=== PATIENT | male | born 1940 | race Caucasian/White ===

== ENCOUNTER → 2016-09-05 | Outpatient (CLI) | payer OTHER ==
[~2016-09-05] MED LIST: ASCA500 PO; CHERRY PACK PO; CHOL1000 PO; FIBER PO; IBUP-1050 PO; MGN PO; SENN-65 PO; SUPER BETA PROSTATE PO; VITA100C4 PO
[2016-09-05 13:52] LABS: ESTIMATED AVERAGE GLUCOSE 120 mg/dl; HA1C FLAG Normal (Normal)
[2016-09-05 13:57] LABS: BLOOD UREA NITROGEN 19 mg/dl (7-18); BUN/CREATININE RATIO 21.1 (10-20); CALCIUM 9.3 mg/dl (8.5-10.1); CARBON DIOXIDE 26 mmol/L (21-32); CHLORIDE 105 mmol/L (98-107); CREATININE 0.89 mg/dl (0.60-1.40); GLUCOSE 105 mg/dl (70-99); SODIUM 141 mmol/L (136-145)
[2016-09-05 14:02] LABS: % FREE PSA 11.1 %; FREE PSA 1.34 ng/ml
== END | disposition home or self-care (01) ==
LOC: C.LABBC 11:25
PROVIDERS: ATTEND Urology
DX: R97.20 Elevated prostate specific antigen [PSA] (principal); R73.01 Impaired fasting glucose

== ENCOUNTER 2016-09-14 11:31 | Emergency (ER) | payer OTHER ==
[~2016-09-14] VITALS: Ht 175.3 cm; Wt 76.6 kg
[~2016-09-14 11:31] MED LIST changes: -CHOL1000 PO; -SENN-65 PO
[2016-09-14 11:39] VITALS: TEMP 36.4; Ht 175.3 cm; Wt 76.6 kg
--- NOTE | 2016-09-14 11:52 | EMERGENCY ROOM VISIT NOTE ---
History Report prepared by Joellen: Sven Cruz Under the Supervision of: Dr. Giovani Pathak M.D. First contact with patient: 11:43 Chief Complaint: CONSTIPATION Stated Complaint: IMPACTED STOOL-CAN'T PASS History of Present Illness The patient is a 76 year old male who presents to the Emergency Room with complaints of persistent constipation beginning earlier today. He notes his last bowel movement was yesterday with no complications. He reports he feels the stool is "too big to pass", but does note he has the urge to have a bowel movement. The patient states he is too stressed to urinate but feels that he could urinate. He has never had an enema before, and does not take medications to help with bowel movements. He denies having any nausea or vomiting. Source of History: patient Onset: earlier today Position: other (bowel/rectum) Quality: other (persistent) Timing: other (persistent) Associated Symptoms: No nausea, No vomiting Review of Systems See HPI for pertinent positives & negatives. A total of 10 systems reviewed and were otherwise negative. Past Medical & Surgical Medical Problems: (1) No Known Active Medical Problems Family History No pertinent family history stated. Social History Smoking Status: Never Smoker Current/Historical Medications Scheduled Ascorbic Acid (Vitamin C *), 2,000 MG PO DAILY Cholecalciferol (Vitamin D3), 1 TAB PO DAILY Fiber Laxative (Fiber Laxative), 1 PO DAILY Ibuprofen (Advil), 800 MG PO BID Magnesium (Magnesium), 250 MG PO DAILY Sennosides-Docusate Sodium (Senokot S), 1 TAB PO BID Tocopheryl Acet,Dl-Alpha (Vitamin E), 200 INTER.UNIT PO DAILY [Super Beta Prostate], 2 TABLETS PO DAILY Allergies Coded Allergies: Tetanus Toxoid (Verified Allergy, Unknown, HIVES, 09/14/16) REACTION CHILD Physical Exam Vital Signs Date Time Temp Pulse Resp B/P Pulse Ox O2 Delivery O2 Flow Rate FiO2 09/14/16 13:12 56 16 153/88 97 09/14/16 11:39 36.4 54 18 145/79 97 Room Air Physical Exam GENERAL: Patient is in no acute distress. HEENT: No acute trauma, normocephalic atraumatic, mucous membranes moist, no nasal congestion, no scleral icterus. NECK: No stridor, no adenopathy, no meningismus, trachea is midline. LUNGS: Clear to auscultation bilaterally, no wheeze, no rhonchi, breath sounds equal. HEART: Without murmurs gallops or rubs, regular rate and rhythm. ABDOMEN: Soft, nontender, bowel sounds positive, no hernias, no peritonitis. EXTREMITIES: No cyanosis or edema, full range of motion of all the joints without pain or difficulty, no signs for acute trauma. NEUROLOGIC: Oriented x 3, no acute motor or sensory deficits, no focal weakness. SKIN: No rash, no jaundice, no diaphoresis. RECTAL: Significant stool in the rectal vault; no rectal mass. Medical Decision & Procedures Medications Administered Medications (Trade) Dose Ordered Sig/Denise Route Start Time Stop Time Status Last Admin Dose Admin Senna/Docusate Sodium (Senokot S Tab) 2 tab NOW ONCE PO 09/14/16 12:00 09/14/16 12:01 DC 09/14/16 11:55 2 TAB ED Course 1145: The patient was evaluated in room B6. A complete history and physical exam was performed. 1200: Ordered Senokot S Tab 2 tabs PO. 1302: I updated the patient and he is doing well. 1310: Reevaluated the patient. Discussed results and discharge instructions: He verbalized understanding and agreement. The patient is ready for discharge. Medical Decision Differentials include bowel obstruction, rectal mass, constipation, and urinary retention. The patient presents complaining of constipation. He had no pain across the abdomen on exam, he was not febrile or toxic. On my exam, he had a large amount of stool in the rectal vault. The patient was given Senokot orally. He was given a soapsuds enema. He had a large bowel movement and felt improved, he was asking for discharge home. The patient will be discharged on Senokot, he can return if worsening. Impression Primary Impression: Constipation Scribe Attestation The scribe's documentation has been prepared under my direction and personally reviewed by me in its entirety. I confirm that the note above accurately reflects all work, treatment, procedures, and medical decision making performed by me. Departure Information Dispostion Home / Self-Care Prescriptions Sennosides-Docusate Sodium (SENOKOT S) 1 Tab Tab 1 TAB PO BID, #60 TAB 3 Refills Prov: Giovani Pathak M.D. 09/14/16 Referrals RV. Drake MD (PCP) Patient Instructions [facility] Additional Instructions senokot 1 tab 2x per day to keep bowels more regular return for worsening trouble
[2016-09-14] MEDS ORDERED: DOCUSATE SODIUM/SENNA 50/8.6MG TAB PO ONE (12:00)
[2016-09-14] MEDS ORDERED: CHOL1000 PO (12:00)
[2016-09-14] MEDS ORDERED: SENN-65 PO (13:07)
[2016-09-14 13:12] VITALS: BP 153/88; PULSE 56; O2SAT 97
== END 2016-09-14 13:13 | disposition home or self-care (01) ==
LOC: C.EDB 11:33
DX: K59.00 Constipation, unspecified (principal); Z79.899 Other long term (current) drug therapy

== ENCOUNTER → 2016-10-23 | Outpatient (CLI) | payer OTHER ==
[~2016-10-23] MED LIST changes: -CHERRY PACK PO; +CHOL1000 PO; +SENN-65 PO
[2016-10-23 14:05] LABS: BLOOD UREA NITROGEN 24 mg/dl (7-18); BUN/CREATININE RATIO 26.8 (10-20); CREATININE 0.88 mg/dl (0.60-1.40)
== END | disposition home or self-care (01) ==
LOC: C.LABBC 10:47
PROVIDERS: ATTEND Urology
DX: R97.20 Elevated prostate specific antigen [PSA] (principal)

== ENCOUNTER → 2017-02-20 | Outpatient (CLI) | payer OTHER ==
[2017-02-20 13:06] LABS: BASO % 0.6 %; BASO ABS # 0.03 K/uL (0-0.2); COMPLETE YES; EOS % 1.8 %; HEMATOCRIT 46.1 % (42-52); IG% 0.2 %; LYMPH % 22.3 %; LYMPH ABS # 1.21 K/uL (1.2-3.4); MEAN CORPUSCULAR HEMOGLOBIN 32.7 pg (25-34); MEAN CORPUSCULAR HGB CONC 34.1 g/dl (32-36); MEAN PLATELET VOLUME 10.6 fL (7.4-10.4); NEUT % 66.1 %; PLATELET COUNT 153 K/uL (130-400); WHITE BLOOD COUNT 5.43 K/uL (4.8-10.8)
[2017-02-20 13:35] LABS: ALT/SGPT 36 U/L (12-78); BLOOD UREA NITROGEN 18 mg/dl (7-18); BUN/CREATININE RATIO 22.4 (10-20); CALCIUM 9.7 mg/dl (8.5-10.1); CARBON DIOXIDE 29 mmol/L (21-32); CHLORIDE 105 mmol/L (98-107); CREATININE 0.82 mg/dl (0.60-1.40); GLUCOSE 70 mg/dl (70-99); POTASSIUM 4.1 mmol/L (3.5-5.1); SODIUM 142 mmol/L (136-145)
[2017-02-20 13:45] LABS: ALB/GLOB RATIO 1.3 (0.9-2); ALKALINE PHOSPHATASE 67 U/L (45-117); AST/SGOT 35 U/L (15-37)
== END | disposition home or self-care (01) ==
LOC: C.LAB1850 11:58
PROVIDERS: ATTEND Internal Medicine
DX: R53.83 Other fatigue (principal)

== ENCOUNTER → 2017-06-23 | Outpatient (CLI) | payer OTHER ==
[~2017-06-23] MED LIST changes: +ASTA1CAP PO; +ASTA1CAP4 PO; +GLUC1CAP35; +KRIL1CAP21; +MAGN250T3 PO; +MULT-1027 PO; +OMEG10007 PO; +VITA100C2 PO; +[UNRECOGNIZED DRUG - CODE] PO
== END | disposition home or self-care (01) ==
LOC: C.LAB 09:54
PROVIDERS: ATTEND Urology
DX: R97.20 Elevated prostate specific antigen [PSA] (principal)

== ENCOUNTER 2017-07-16 10:23 | Inpatient (IN) | payer OTHER ==
[2017-06-23 08:53] VITALS: BMI 24.0
--- NOTE | 2017-06-23 09:32 | PAT Medication Instructions ---
Service Date Jun 23, 2017. Current Home Medication List Ascorbic Acid (Vitamin C), 1,000 MG PO Q1H Astaxanthin (Astaxanthin), 3 MG PO Q2D Astaxanthin (Astaxanthin), 1 CAP PO Q2D Cholecalciferol (Cvs D3), 1 CAP PO QAM Fiber Laxative (Fiber Laxative), Unknown Dose PO QAM Fish Oil ([place]-3), 1 CAP PO Q2D Vbgfszrotoj-Fmxamvcbsgg-Mvy C- (Glucosamine Chondroitin), Unknown Dose QAM Krill Oil (Cvs [place]-3 Krill Oil 300 mg), Q2D Magnesium (Magnesium 250 mg), 1 TAB PO QAM Multiple Vitamin (Multi Vitamin), 1 TAB PO QAM Vitamin E (Vitamin E 100 Iu), 200 INTER.UNIT PO Q2D [Super Beta Prostate], Unknown Dose PO BID Medication Instructions For Your Scheduled Surgery - Hold the following medications 2 weeks prior to surgery: Astaxanthin (Astaxanthin), 3 MG PO Q2D Astaxanthin (Astaxanthin), 1 CAP PO Q2D Vitamin E (Vitamin E 100 Iu), 200 INTER.UNIT PO Q2D Fish Oil ([place]-3), 1 CAP PO Q2D Pclloxvyqud-Ftklazgqpau-Tde C- (Glucosamine Chondroitin), Unknown Dose QAM Krill Oil (Cvs [place]-3 Krill Oil 300 mg), Q2D [Super Beta Prostate], Unknown Dose PO BID - Hold the following medications the morning of surgery: Cholecalciferol (Cvs D3), 1 CAP PO QAM Fiber Laxative (Fiber Laxative), Unknown Dose PO QAM Ascorbic Acid (Vitamin C), 1,000 MG PO Q1H Magnesium (Magnesium 250 mg), 1 TAB PO QAM Multiple Vitamin (Multi Vitamin), 1 TAB PO QAM If you have any questions please call us at [phone] or [phone] or [phone]
--- NOTE | 2017-06-23 10:30 | DIAGNOSTIC IMAGING REPORT ---
CHEST PREADMISSION(PA/LAT) CLINICAL HISTORY: Preoperative chest COMPARISON STUDY: No previous studies for comparison. FINDINGS: The cardiac and mediastinal contours are normal. There is no evidence of focal pulmonary consolidation. There is no evidence of failure. No pleural effusions are visualized.[ There are minor bibasilar atelectatic changes. IMPRESSION: No active disease in the chest. Electronically signed by: Dawood Bejarano M.D. 06/23/2017 10:28 AM Dictated Date/Time: 06/23/2017 10:28 AM
[2017-06-23 10:53] LABS: BASO % 0.3 %; BASO ABS # 0.02 K/uL (0-0.2); COMPLETE YES; EOS % 2.3 %; HEMATOCRIT 44.2 % (42-52); IG% 0.3 %; LYMPH ABS # 1.73 K/uL (1.2-3.4); MEAN CELL VOLUME 95.5 fL (80-100); MEAN CORPUSCULAR HEMOGLOBIN 33.3 pg (25-34); MEAN CORPUSCULAR HGB CONC 34.8 g/dl (32-36); MEAN PLATELET VOLUME 10.5 fL (7.4-10.4); MONO % 10.1 %; PLATELET COUNT 147 K/uL (130-400); RED BLOOD COUNT 4.63 M/uL (4.7-6.1); WHITE BLOOD COUNT 6.93 K/uL (4.8-10.8)
[2017-06-23 10:59] LABS: PARTIAL THROMBOPLASTIN RATIO 1.1; PROTHROMBIN TIME (PATIENT) 10.7 SECONDS (9.0-12.0)
[2017-06-23 11:00] LABS: ESTIMATED AVERAGE GLUCOSE 117 mg/dl; HA1C FLAG Normal (Normal)
[2017-06-23 11:12] LABS: URINE APPEARANCE CLEAR (CLEAR); URINE BILIRUBIN NEG (NEG); URINE COLOR YELLOW; URINE EPITHELIAL CELL AUTO 0-5 /lpf (0-5); URINE NITRITE NEG (NEG); URINE PH 5.5 (4.5-7.5); URINE SPECIFIC GRAVITY 1.023 (1.000-1.030); UROBILINOGEN NEG (NEG)
[2017-06-23 11:14] LABS: MANUAL MICROSCOPIC REQUIRED? NO; REVIEW REQ? NO
[2017-06-23 11:23] LABS: BUN/CREATININE RATIO 23.4 (10-20); CALCIUM 9.7 mg/dl (8.5-10.1); CREATININE 0.81 mg/dl (0.60-1.40); POTASSIUM 4.1 mmol/L (3.5-5.1)
[2017-06-23 12:57] VITALS: BMI 24.0
--- NOTE | 2017-07-15 19:20 | HISTORY & PHYSICAL EXAMINATION ---
DATE OF ADMISSION: 07/16/2017 HISTORY OF PRESENT ILLNESS: The patient presents as a 76-year-old white male being seen and evaluated for complaints of ongoing pain, attributable to his right shoulder. He presents for shoulder hemiarthroplasty versus total shoulder arthroplasty. He has failed attempts at conservative management including physical therapy, anti-inflammatories, relative rest, activity modification, intraarticular injections, and presents for right shoulder arthroplasty. PAST MEDICAL HISTORY: Otherwise unremarkable. He denies history of hypertension, hypercholesterolemia or diabetes or thyroid disease. The patient has no significant medical history. FAMILY HISTORY: Otherwise unremarkable or noncontributory. SOCIAL HISTORY: The patient denies history of recreational drug use. No smoking, no alcohol use. PAST SURGICAL HISTORY: Include bilateral knee arthroscopies with subsequent total knee arthroplasty. ALLERGIES: TETANUS. MEDICATIONS: None. REVIEW OF SYSTEMS: GENERAL: Otherwise, unremarkable. HEENT: Otherwise unremarkable. PHYSICAL EXAMINATION: HEENT: Atraumatic, normocephalic. HEART: Regular at 72 beats per minute. LUNGS: Clear. No rales, rhonchi, or wheezes noted. ABDOMEN: Soft, nontender, nondistended. Bowel sounds are present in all four quadrants. RECTAL: No rectal examination was performed. MUSCULOSKELETAL EXAMINATION: Consistent with a severe DJD of right shoulder. PLAN: For right shoulder hemiarthroplasty versus total shoulder arthroplasty pending findings at time of surgery, postoperative pain management, DVT prophylaxis, antibiotics as necessary MTDD
[2017-07-16] VITALS (7 sets, daily range): BP systolic 125–164; BP diastolic 61–85; PULSE 51–67; TEMP 36.5–36.9; O2SAT 91–97; Ht 175.3 cm; Wt 76.5 kg
[~2017-07-16] VITALS: Ht 175.3 cm; Wt 76.5 kg
[2017-07-16] MEDS: TRANEXAMIC ACID INJ 1,000 MG in SYRINGE 0 ML IV SCH ×2 (06:30→12:09)
[~2017-07-16 10:23] MED LIST changes: +ACETAMINOPHEN 500 MG TAB PO SCH; +BUPIVACAINE 0.25% 30 ML VIAL ONE; +CEFAZOLIN 2000MG IV PUSH 10 ML IV SCH; -CHOL1000 PO; +CeleBREX 200 MG CAP PO SCH; +DEXAMETHASONE 4 MG TAB PO SCH; +DEXAMETHASONE SOD INJ 4 MG/ML VIAL ONE; +EpINEphrine INJ 1MG/ML AMP 1 MG/ML AMP ONE; +FAMOTIDINE 20 MG TAB PO SCH; +GABAPENTIN 300 MG CAP PO SCH; -IBUP-1050 PO; +LACTATED RINGER'S 1000ML 1,000 ML IV SCH; +LACTATED RINGER'S 1000ML IV SCH; +METOCLOPRAMIDE HCL 10 MG TAB PO SCH; -MGN PO; +ROPIVACAINE 5MG/ML 30 ML 150 MG, BUPIVACAINE 0.5% MPF INJ 30 ML, EpINEphrine HCL INJ 0.... INFIL SCH; -SENN-65 PO; -VITA100C4 PO
--- NOTE | 2017-07-16 10:23 | History & Physical Bridge Note ---
H&P Re-Evaluation Bridge Note: I have examined the patient, reviewed the History & Physical and in the interval since the performance of the History & Physical I have noted the following changes of clinical significance: No changes noted
[2017-07-16] MEDS ORDERED: MIDAZOLAM HCL 1 MG/ML 2ML VIAL ONE (10:30)
[2017-07-16] MEDS ORDERED: FENTANYL CITRATE INJ 50 MCG/1 ML 2 ML VIAL ONE (10:30)
[2017-07-16] MEDS ORDERED: ROCURONIUM BROMIDE 10 MG/ML 5 ML VIAL IV ONE (10:33)
[2017-07-16] MEDS ORDERED: ONDANSETRON INJ 2 MG/ML 2 ML VIAL ONE (10:33)
[2017-07-16] MEDS ORDERED: LIDOCAINE HCL 2% 2 ML VIAL (20MG/ML) ONE (10:33)
[2017-07-16] MEDS ORDERED: DEXAMETHASONE SOD INJ 4 MG/ML VIAL ONE (10:33)
[2017-07-16] MEDS ORDERED: PROPOFOL IV EMULSION 10 MG/ML 20 ML VIAL IV ONE (10:33)
[2017-07-16] MEDS ORDERED: MENA40TA PO (10:51)
[2017-07-16] MEDS ORDERED: MISCTAB26 PO (10:53)
[2017-07-16] MEDS ORDERED: THROMBIN FOR SOLN 20000 UNIT KIT ONE (11:54)
[2017-07-16] MEDS ORDERED: BACITRACIN 50000 UNIT VIAL ONE (11:54)
[2017-07-16] MEDS ORDERED: EpHEDrine SULFATE INJ 50 MG/ML AMP IV PRN (12:45)
[2017-07-16] MEDS ORDERED: ATROPINE SULFATE 0.1 MG/ML 5ML SYR IV PRN (12:45)
[2017-07-16] MEDS ORDERED: ONDANSETRON INJ 2 MG/ML 2 ML VIAL IV PRN ×2 (12:45→14:15)
[2017-07-16] MEDS ORDERED: FENTANYL CITRATE INJ 50 MCG/1 ML 2 ML VIAL IV PRN (12:45)
[2017-07-16] MEDS ORDERED: PHENYLEPHRINE 100MCG/ML 5ML SYR ONE (12:54)
--- NOTE | 2017-07-16 14:00 | [facility] Operative Report ---
Operative Report Operative Date Jul 16, 2017. 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 Love Rider Ticket Worker Surgeon(s) Lino RANDOLPH Estimated Blood Loss 15ml Findings DJD glenohumeral joint with osteophytes inferior humeral head Nourse wants to conservative therapy including viscous supplementation corticosteroid injections anti-inflammatories presents for hemiarthroplasty. Specimens a. right humeral head Complication(s) None Disposition Recovery Room / PACU Indications Patient presents after having failed attempts at conservative management over many years injections anti-inflammatories relative rest presents with a inferior osteophyte of the humeral head DJD N joint for a thanks for total shoulder versus hemiarthroplasty surgery hemiarthroplasty was indicated. Description of Procedure After proper prepping draping the right shoulder region a standard anterior deltopectoral interval incision was made dissection was carried to subcutaneoustissues to the region of the deltopectoral interval the cephalic vein was retracted lateralward with the deltoid anterior aspect of the subscapularis tendon was reflected off the anterior portion humeral head the glenoid limbs and evaluated the glenoid was noted to be in satisfactory condition articular cartilage remaining the humeral head had significant eburnated bone with large inferior osteophytes osteophytes were removed after having removed osteophytes the humeral head was subsequently made anatomic cut for a state attorney a hemiarthroplasty stem O socially reamed to a size 3 broach to a size 3 within a angle on the head neck shaft angle with a 46 mm head set at 11 :30 gave excellent coverage of the humeral head of the FiberWire sutures #5 FiberWire sutures through replacement anterior cortical drill hole socially the implant was press-fit into position trialed excellent stability was noted subsequently the subscapularis tendon rotator cuff repair back to bed of bleeding bone utilizing 5 FiberWire and #1 Ethibond was irrigated with proximal to sterile saline solution pectorals #2 Vicryl skin was closed with 3-0 Vicryl and skin clips sterile compressive dressing was placed. Gustavo RANDOLPH was necessary for prepping draping retraction wound closure of defect subcutaneous and skin was necessary for the case I attest to the content of the Intraoperative Record and any orders documented therein. Any exceptions are noted below.
[2017-07-16] MEDS ORDERED: MoRPHine SULFATE 2 MG/ML CARP IV PRN ×2 (14:15→14:45)
[2017-07-16] MEDS ORDERED: BISACODYL 10 MG SUPP PR PRN (14:15)
[2017-07-16] MEDS ORDERED: CEFAZOLIN IV 2,000 MG in DEXTROSE 5% 50ML 50 ML IV SCH (14:15)
[2017-07-16] MEDS ORDERED: MAGNESIUM HYDROXIDE SUSP 30 ML UDC PO PRN (14:15)
[2017-07-16] MEDS ORDERED: SOD PHOSPHATE/SOD BIPHOSPHATE ENEMA 132 ML BTL PR PRN (14:15)
[2017-07-16] MEDS ORDERED: ZOLPIDEM TARTRATE 5 MG TAB PO PRN (14:15)
[2017-07-16] MEDS ORDERED: OXYCODONE HCL IR 5 MG TAB (IMMEDIATE RELEASE) PO PRN (14:15)
[2017-07-16] MEDS ORDERED: ALUMINUM/MAGNESIUM SUSP 30 ML UDC PO PRN (14:15)
[2017-07-16] MEDS ORDERED: TRAMADOL HCL 50 MG TAB PO PRN (14:30)
--- NOTE | 2017-07-16 14:44 | DIAGNOSTIC IMAGING REPORT ---
R SHOULDER MIN 2 VIEWS ROUTINE CLINICAL HISTORY: Post shoulder surgery joint replacement COMPARISON: None. DISCUSSION: Anatomic alignment status post right shoulder arthroplasty. Surgical drains are in position expected soft tissue postoperative change IMPRESSION: Anatomic alignment status post right shoulder arthroplasty The above report was generated using voice recognition software. It may contain grammatical, syntax or spelling errors. Electronically signed by: Gustavo Alexandre M.D. 07/16/2017 2:42 PM Dictated Date/Time: 07/16/2017 2:41 PM
[2017-07-16] MEDS ORDERED: MoRPHine SULFATE 4 MG/ML 1 ML CARP\\VIAL IV PRN (14:45)
[2017-07-16] MEDS ORDERED: MoRPHine SULFATE 10 MG/ML CARP/VIAL IV PRN (14:45)
--- NOTE | 2017-07-16 14:57 | Anesthesiology Progress Note ---
Anesthesia Post Op Note Date & Time Jul 16, 2017 at 14:56 Vital Signs Pain Intensity: 0 Vital Signs Past 12 Hours Date Time Temp Pulse Resp B/P (MAP) Pulse Ox O2 Delivery O2 Flow Rate FiO2 07/16/17 14:15 36.7 74 16 159/82 96 Mask 10 07/16/17 11:06 36.6 51 16 164/84 97 Room Air Notes Mental Status: alert / awake / arousable, participated in evaluation Pt Amnestic to Procedure: Yes Nausea / Vomiting: adequately controlled Pain: adequately controlled Airway Patency, RR, SpO2: stable & adequate BP & HR: stable & adequate Hydration State: stable & adequate Anesthetic Complications: no major complications apparent Block working wellin pacu
[2017-07-16] MEDS: D5W AND 1/2NSS + 20MEQ KCL 1,000 ML IV SCH (17:12)
[2017-07-16] MEDS: KETOROLAC TROMETHAMINE 15 MG/ML VIAL IV. SCH ×2 (18:18→23:54)
[2017-07-16] MEDS: CEFAZOLIN IV 2,000 MG in SYRINGE 0 ML IV SCH (20:14)
[2017-07-16] MEDS: DOCUSATE SODIUM 100 MG CAP PO SCH (20:14)
[2017-07-16] MEDS ORDERED: SENNA 8.6 MG TAB PO SCH (21:00)
[2017-07-16] MEDS: ACETAMINOPHEN 500 MG TAB PO SCH (22:13)
[2017-07-17] MEDS: D5W AND 1/2NSS + 20MEQ KCL 1,000 ML IV SCH ×2 (02:29→12:30)
[2017-07-17 03:10] VITALS: BP 142/73; PULSE 56; TEMP 36.6; O2SAT 95
[2017-07-17] MEDS: CEFAZOLIN IV 2,000 MG in SYRINGE 0 ML IV SCH (04:42)
[2017-07-17] MEDS: KETOROLAC TROMETHAMINE 15 MG/ML VIAL IV. SCH ×2 (05:33→12:19)
[2017-07-17] MEDS: ACETAMINOPHEN 500 MG TAB PO SCH ×2 (05:34→13:55)
[2017-07-17 06:02] LABS: HEMATOCRIT 39.3 % (42-52); MEAN CELL VOLUME 95.2 fL (80-100); MEAN CORPUSCULAR HEMOGLOBIN 33.2 pg (25-34); MEAN CORPUSCULAR HGB CONC 34.9 g/dl (32-36); MEAN PLATELET VOLUME 10.6 fL (7.4-10.4); PLATELET COUNT 139 K/uL (130-400); RED BLOOD COUNT 4.13 M/uL (4.7-6.1); WHITE BLOOD COUNT 8.77 K/uL (4.8-10.8)
[2017-07-17 06:12] LABS: INR 1.1 (0.9-1.1); PROTHROMBIN TIME (PATIENT) 11.3 SECONDS (9.0-12.0)
[2017-07-17 06:35] LABS: BUN/CREATININE RATIO 19.3 (10-20); CALCIUM 8.5 mg/dl (8.5-10.1); CREATININE 0.98 mg/dl (0.60-1.40); POTASSIUM 4.5 mmol/L (3.5-5.1)
[2017-07-17 07:24] VITALS: BP 137/74; PULSE 61; TEMP 36.7; O2SAT 95
--- NOTE | 2017-07-17 08:00 | Orthopedic Progress Note ---
Orthopedic Progress Note Date of Service Jul 17, 2017. Subjective Post OP Day: 1 Reports: feeling well, Denies: chest pain, SOB, nausea / vomiting, light headedness, calf pain Objective calves soft nontender, N/V intact, capillary refill less than 2 sec., dressing C /D/I, A&O x3, hemovac drainage (NONE, DC'D) Date Time Temp Pulse Resp B/P (MAP) Pulse Ox O2 Delivery O2 Flow Rate FiO2 07/17/17 07:24 36.7 61 20 137/74 (95) 95 Room Air 07/17/17 03:10 36.6 56 17 142/73 (96) 95 Nasal Cannula 2.0 07/17/17 00:00 Nasal Cannula 2.0 07/16/17 22:47 36.8 67 18 134/72 (92) 94 Nasal Cannula 2.0 07/16/17 19:36 36.5 64 16 125/71 (89) 96 Nasal Cannula 2.0 07/16/17 17:20 36.6 67 16 134/61 (85) 97 Nasal Cannula 2.0 07/16/17 16:20 36.6 63 16 162/82 (108) 91 Nasal Cannula 2.0 07/16/17 15:50 36.6 54 16 160/85 (110) 95 Nasal Cannula 2.0 07/16/17 15:20 95 Nasal Cannula 2.0 07/16/17 15:20 95 Nasal Cannula 2.0 07/16/17 15:20 36.9 60 16 156/75 (102) 93 Nasal Cannula 2.0 07/16/17 15:14 36.5 07/16/17 15:10 57 20 07/16/17 15:10 58 20 136/73 07/16/17 15:05 60 20 140/70 07/16/17 15:05 59 20 07/16/17 15:00 20 07/16/17 15:00 61 20 141/75 07/16/17 14:55 59 18 07/16/17 14:55 58 18 143/74 07/16/17 14:50 62 22 140/79 07/16/17 14:50 22 07/16/17 14:45 63 24 146/78 07/16/17 14:45 24 07/16/17 14:40 60 21 07/16/17 14:40 61 21 143/76 96 07/16/17 14:35 67 22 131/99 95 07/16/17 14:35 68 22 07/16/17 14:30 64 21 07/16/17 14:30 65 21 148/83 07/16/17 14:25 21 07/16/17 14:25 66 21 154/81 07/16/17 14:21 161/83 07/16/17 14:20 67 20 95 07/16/17 14:20 68 20 07/16/17 14:15 36.7 74 16 159/82 96 Mask 10 07/16/17 11:06 36.6 51 16 164/84 97 Room Air Laboratory Results 24 Hours: Test 07/17/17 05:47 Hematocrit 39.3 % Hemoglobin 13.7 g/dL Prothromb Time International Ratio 1.1 Prothrombin Time 11.3 SECONDS Assessment & Plan Assessment: POD#1 SP RIGHT SHOULDER PHILL ARTHROPLASTY Plan: PT/OT DVT PROPH- ASA PAIN MANAGEMENT- MEHREEN, CELEBREX, TYLENOL DC PLANNING- LIKELY DC HOME WITH PT
--- NOTE | 2017-07-17 08:03 | Discharge Instructions ---
Discharge Instructions Date of Service Jul 17, 2017. Admission Reason for Admission: Right Shoulder Osteoarthritis Discharge Discharge Diagnosis / Problem: SP RIGHT SHOULDER HEMIARTHROPLASTY Discharge Goals Goal(s): Decrease discomfort, Improve function, Increase independence Activity Recommendations Activity Limitations: per Instructions/Follow-up section . Instructions / Follow-Up Instructions / Follow-Up ACTIVITY RECOMMENDATIONS: SELF CARE INSTRUCTIONS AFTER TOTAL SHOULDER ARTHROPLASTY A. You may do daily exercises as taught in physical therapy while in hospital. No lifting with the operative arm. Please schedule your outpatient physical therapy appointment to begin within 2-3 days after leaving the hospital. Specific restrictions will be written on your physical therapy prescription that is provided to you. B. You are to wear your sling/immobilizer at all times EXCEPT when performing your daily exercises, participating in physical therapy and for hygiene purposes. C. You may perform dry, daily dressing changes. Please keep your incision covered. You may shower 48 hours after surgery. Do not apply soap or any ointment/ lotions directly over incision. Do not soak incision in bath tub/swimming pool. D. You may use ice as needed to operative shoulder. SPECIAL CARE INSTRUCTIONS: MEDICATION INSTRUCTIONS: *It is recommended you take Aspirin 325mg daily for four weeks post-op. VERY IMPORTANT TO READ AND REVIEW A. There are a few signs you need to watch for after you are home. Call [facility] at [phone] if you experience any of the followin. Increased severe shoulder pain. Some pain is expected especially when you exercise. 2. Increased swelling in you shoulder or arm; pain or swelling in either upper extremity. 3. Any fluid drainage from the incision. 4. Shortness of breath or chest pain. B. Please call [facility] at [phone] if you have any questions or concerns about your operation or recovery. C. Call your physician if: 1. Temperature is greater than 101 degrees (F). 2. Pain is not relieved by prescribed pain medications. 3. Increase drainage or redness from incision. 4. Unanswered questions or concerns. FOLLOW UP VISIT: Please call [facility] at [phone] to schedule a follow up appointment with Dr. KIM or his PA in 12-14 days from your surgery date. Current Hospital Diet Patient's current hospital diet: Regular Diet Discharge Diet Recommended Diet: Regular Diet Procedures Procedures Performed: Right Total Shoulder Hemiarthroplasty utilizing tournier hemiarthroplasty's size 46 head offset at 10:30 at a a ankle with a short size 3 stem Pending Studies Studies pending at discharge: no Laboratory Results Hemoglobin A1c Test 06/23/17 09:53 Range/Units Estimated Average Glucose 117 mg/dl Hemoglobin A1c 5.7 H 4.5-5.6 % Medical Emergencies . Who to Call and When: Medical Emergencies: If at any time you feel your situation is an emergency, please call 911 immediately. . Non-Emergent Contact Non-Emergency issues call your: Surgeon . "Provider Documentation" section prepared by Anni Ordoñez. . VTE Core Measure Inpt VTE Proph given/why not?: Other Anticoagulation, T.E.D. Stockings, SCD's [place] Drug Monitoring Program Search Results: patient reviewed within database, no issues identified
[2017-07-17] MEDS ORDERED: CLB200 PO (08:09)
[2017-07-17] MEDS ORDERED: RXC5 PO (08:09)
[2017-07-17] MEDS ORDERED: ONDA8TAB6 PO (08:09)
[2017-07-17] MEDS ORDERED: SENN1TAB80 PO (08:09)
[2017-07-17] MEDS ORDERED: ACET-24 PO (08:09)
[2017-07-17] MEDS: DOCUSATE SODIUM 100 MG CAP PO SCH (08:56)
[2017-07-17] MEDS ORDERED: CHOLECALCIFEROL 1000 INTER.UNIT TAB PO SCH (09:00)
[2017-07-17] MEDS ORDERED: MAGNESIUM OXIDE 400 MG TAB PO SCH (09:00)
[2017-07-17] MEDS ORDERED: PANTOprazole SOD 40 MG TAB PO SCH (09:00)
[2017-07-17] MEDS ORDERED: MULTIVITAMIN TAB PO SCH (09:00)
[2017-07-17 10:54] VITALS: BP_SYST 124; BP_SYST 137; BP_DIAS 69; BP_DIAS 74; PULSE 57; PULSE 61; TEMP 36.7; O2SAT 94; O2SAT 95
--- NOTE | 2017-07-17 15:57 | Discharge Summary ---
Orthopedic Discharge Summary Admission Date/Reason Jul 16, 2017 at 14:16 Right Shoulder Osteoarthritis. Discharge Date/Disposition Jul 17, 2017 Home Diagnosis Principal Diagnosis: Right shoulder osteoarthritis Procedure(s) Performed Right Total Shoulder Hemiarthroplasty utilizing tournier hemiarthroplasty' Consultations NONE Medication Reconciliation New Medications: Ondansetron Hcl (Zofran) 8 Mg Tab 8 MG PO Q8 PRN for Nausea, #20 TAB Acetaminophen (Sb Non-Aspirin Extra Stre) 500 Mg Tab 1000 MG PO Q8 for 30 Days, #180 TAB Celecoxib (Celebrex) 200 Mg Cap 200 MG PO BID, #60 CAP Oxycodone HCl (Oxycodone HCl) 5 Mg Tab 5-10 MG PO Q4H PRN for Pain, #60 TAB Sennosides (Senna Lax) 8.6 Mg Tab 17.2 MG PO HS for 14 Days, TAB Continued Medications: Astaxanthin (Astaxanthin) 4 Mg Cap 3 MG PO Q2D PT ROTATES ONE DAY A 3 MG TABLET AND THE NEXT DAY A 5 MG TABLET OF THIS Astaxanthin (Astaxanthin) 5 Mg Cap 1 CAP PO Q2D PT ROTATES ONE DAY A 3 MG TABLET AND THE NEXT DAY A 5 MG TABLET OF THIS Cholecalciferol (Cvs D3) 5,000 Unit Cap 1 CAP PO QAM Fiber Laxative (Fiber Laxative) Unknown Strength Ea Unknown Dose PO QAM TAKES WITH 8OZ GLASS WATER Fish Oil ([place]-3) 1 Ea Cap 1 CAP PO Q2D, CAP PT REPORTS ONE DAY WILL TAKE A FISH OIL AND NEXT DAY KRILL OIL - ROTATION - TAKES IN AM Njvnsjlqdrh-Rsbyqunkfwq-Wvl C- (Glucosamine Chondroitin) Unknown Strength Cap Unknown Dose QAM PT TAKES 3 TABLETS OF THIS IN THE AM Krill Oil (Cvs [place]-3 Krill Oil 300 mg) Unknown Strength Cap Q2D PT REPORTS ROTATES THIS WITH FISH OIL, ONE DAY FISH OIL NEXT DAY KRILL OIL - TAKES IN AM Magnesium (Magnesium 250 mg) 1 Tab Tab 1 TAB PO QAM Menaquinone-7 (Vitamin K2) 40 Mcg Tab Unknown Dose PO QAM Misc Natural Products (Ginkgo Biloba) 1 Tab Tab 1 TAB PO DAILY Multiple Vitamin (Multi Vitamin) 1 Tab Tab 1 TAB PO QAM Vitamin E (Vitamin E 100 Iu) 100 Unit Cap 200 INTER.UNIT PO Q2D, CAP TAKES IN AM [Super Beta Prostate] () Unknown Strength Unknown Dose PO BID Admission Physical Exam As per Admitting History & Physical. Hospital Course Patient was a same day admission after undergoing a successful Right shoulder hemiarthroplasty. he tolerated the procedure well. Post-operatively, his activity was progressed and well tolerated. Please refer to daily progress notes and PT notes for complete details. After exam on 07/17/17, patient felt to be stable for discharge home. Patient will f/u in the office in 2 weeks for further evaluation including x-rays and incision check, sooner if having any issues or concerns. Below are pertinent labs/studies during their hospital stay: Last Resulted CBC 07/17/17 05:47 Last Resulted BMP 07/17/17 05:47 Last Vital Signs Documentation Date Time Temp Pulse Resp B/P (MAP) Pulse Ox O2 Delivery O2 Flow Rate FiO2 07/17/17 10:54 36.7 57 18 124/69 (87) 94 Room Air 07/17/17 03:10 2.0 Discharge Instructions ACTIVITY RECOMMENDATIONS: SELF CARE INSTRUCTIONS AFTER TOTAL SHOULDER ARTHROPLASTY A. You may do daily exercises as taught in physical therapy while in hospital. No lifting with the operative arm. Please schedule your outpatient physical therapy appointment to begin within 2-3 days after leaving the hospital. Specific restrictions will be written on your physical therapy prescription that is provided to you. B. You are to wear your sling/immobilizer at all times EXCEPT when performing your daily exercises, participating in physical therapy and for hygiene purposes. C. You may perform dry, daily dressing changes. Please keep your incision covered. You may shower 48 hours after surgery. Do not apply soap or any ointment/ lotions directly over incision. Do not soak incision in bath tub/swimming pool. D. You may use ice as needed to operative shoulder. SPECIAL CARE INSTRUCTIONS: MEDICATION INSTRUCTIONS: *It is recommended you take Aspirin 325mg daily for four weeks post-op. VERY IMPORTANT TO READ AND REVIEW A. There are a few signs you need to watch for after you are home. Call [facility] at [phone] if you experience any of the followin. Increased severe shoulder pain. Some pain is expected especially when you exercise. 2. Increased swelling in you shoulder or arm; pain or swelling in either upper extremity. 3. Any fluid drainage from the incision. 4. Shortness of breath or chest pain. B. Please call [facility] at [phone] if you have any questions or concerns about your operation or recovery. C. Call your physician if: 1. Temperature is greater than 101 degrees (F). 2. Pain is not relieved by prescribed pain medications. 3. Increase drainage or redness from incision. 4. Unanswered questions or concerns. FOLLOW UP VISIT: Please call [facility] at [phone] to schedule a follow up appointment in 12-14 days from your surgery date.
[2017-07-17] MEDS ORDERED: CeleBREX 200 MG CAP PO SCH (21:00)
== END 2017-07-17 14:34 | disposition home or self-care (01) | DRG 483 ==
LOC: C.ACU 10:23 → C.3E 14:16 → ENRESERV 15:05
PROVIDERS: ADMIT Orthopaedic Surgery; ATTEND Orthopaedic Surgery
PROC: 0RRJ0J6 Replacement of Right Shoulder Joint with Synthetic Substitute, Humeral Surface, Open Approach (ICD-10-PCS; principal; 2017-07-16 12:45)
DX: M19.011 Primary osteoarthritis, right shoulder (principal); Z96.653 Presence of artificial knee joint, bilateral

== ENCOUNTER → 2017-09-04 | Outpatient (CLI) | payer OTHER ==
[~2017-09-04] MED LIST changes: +ACET-24 PO; -ACETAMINOPHEN 500 MG TAB PO SCH; -ASCA500 PO; -BUPIVACAINE 0.25% 30 ML VIAL ONE; -CEFAZOLIN 2000MG IV PUSH 10 ML IV SCH; +CLB200 PO; -CeleBREX 200 MG CAP PO SCH; -DEXAMETHASONE 4 MG TAB PO SCH; -DEXAMETHASONE SOD INJ 4 MG/ML VIAL ONE; -EpINEphrine INJ 1MG/ML AMP 1 MG/ML AMP ONE; -FAMOTIDINE 20 MG TAB PO SCH; -GABAPENTIN 300 MG CAP PO SCH; -LACTATED RINGER'S 1000ML 1,000 ML IV SCH; -LACTATED RINGER'S 1000ML IV SCH; +MENA40TA PO; -METOCLOPRAMIDE HCL 10 MG TAB PO SCH; +MISCTAB26 PO; +ONDA8TAB6 PO; -ROPIVACAINE 5MG/ML 30 ML 150 MG, BUPIVACAINE 0.5% MPF INJ 30 ML, EpINEphrine HCL INJ 0.... INFIL SCH; +RXC5 PO; +SENN1TAB80 PO
[2017-09-04 17:11] LABS: BLOOD UREA NITROGEN 22 mg/dl (7-18); CREATININE 0.87 mg/dl (0.60-1.40)
== END | disposition home or self-care (01) ==
LOC: C.LABBC 15:22
PROVIDERS: ATTEND Urology
DX: R97.20 Elevated prostate specific antigen [PSA] (principal)

== ENCOUNTER → 2017-09-22 | Outpatient (CLI) | payer OTHER ==
[~2017-09-22] MED LIST changes: +GADAVIST IV PRN
--- NOTE | 2017-09-22 13:55 | DIAGNOSTIC IMAGING REPORT ---
PROSTATE MRI COMBO CLINICAL HISTORY: 77 years-old Male presenting with ELEVATED PSA. PSA ng/mL. History of stress normal removal from left thigh in 1957. TECHNIQUE: Multisequence, multiplanar MR imaging of the prostate was performed before and after the administration of intravenous contrast. Additional postprocessing was performed on a separate [employer] workstation by the radiologist for 3-D volumetric segmentation of the prostate and contouring of region(s) of interest (MARIAH) for targeting. IV contrast: 8 mL of Gadavist. COMPARISON: None. FINDINGS: Extensive susceptibility artifact in the region of the left hip degrades image quality on multiple sequences, most pronounced on diffusion weighted imaging. This traumatic limits the diagnostic sensitivity of the examination for assessment of the prostate. Prostate: The prostate measures 5.3 x 4.5 x 5.1 cm(DynaCAD prostate boundary segmentation volume 59 mL). Moderate changes of benign prostatic hyperplasia. Precontrast T1 weighted imaging demonstrates no evidence of intrinsic T1 hyperintensity to suggest hemorrhage. Suspicious lesion(s) described below: Lesion (DynaCAD MARIAH) 1: Location: Left anterior peripheral zone at the base to mid gland. The lesion does not extend across the midline. Size: 12 mm (as measured on ADC for PZ lesion and T2WI for TZ lesion) T2W: 4. Circumscribed, homogeneous moderately hypointense lesion. No evidence of extraprostatic extension, seminal vesicle invasion, or neurovascular bundle involvement. DWI: X. Unable to assess due degraded poor image quality. DCE: X. Unable to assess due to degraded image quality. PI-RADS: X. Unable to assign a PI-RADS lesion assessment category. Seminal vesicles normal. Bladder: Bladder wall thickening likely indicating chronic outlet obstruction. Bowel: Visualized portion of the rectum normal. Peritoneum: No free fluid in the pelvis. Lymph nodes: No lymphadenopathy in the visualized portion of the pelvis. Vasculature: Iliac vessels patent. Abdominal wall: Normal. Osseous structures: Normal bone marrow signal intensity. IMPRESSION: 1. 12 mm lesion in the left peripheral zone at the base to mid gland. PI-RADS: X. Unable to assign a PI-RADS lesion assessment category. This lesion has been segmented for targeted biopsy. 2. Benign prostatic hyperplasia. Electronically signed by: Logan Cochran M.D. 09/22/2017 1:53 PM Dictated Date/Time: 09/22/2017 1:48 PM
== END | disposition home or self-care (01) ==
LOC: C.MRIBC 11:40
PROVIDERS: ATTEND Urology
DX: R97.20 Elevated prostate specific antigen [PSA] (principal)

== ENCOUNTER → 2017-12-10 | Outpatient (CLI) | payer OTHER ==
[~2017-12-10] MED LIST changes: -GADAVIST IV PRN; +ONDA-170 PO; -ONDA8TAB6 PO
== END | disposition home or self-care (01) ==
LOC: C.PATHSPEC 17:46
PROVIDERS: ATTEND Urology
DX: R97.20 Elevated prostate specific antigen [PSA] (principal)

== ENCOUNTER → 2017-12-23 | Outpatient (CLI) | payer OTHER ==
--- NOTE | 2017-12-23 13:55 | DIAGNOSTIC IMAGING REPORT ---
BONE SCAN WHOLE BODY CLINICAL HISTORY: C61 prostate carcinoma COMPARISON STUDY: Conventional radiographs of the shoulders knees and lumbar spine. FINDINGS: The patient was injected with 23.3 mCi of technetium 99m MDP. Three-hour delayed images were acquired. Foci of intense increased activity within both shoulders, corresponding to advanced arthritic changes on conventional radiographic study. There is a focus of increased activity at the level the first carpal metacarpal joint of the right hand. This statistically degenerative. Photopenic defects within the knees, correspond to bilateral knee arthroplasties. A focus of increased activity within the mid lumbar spine has no definite radiographic correlate although the most recent films available are from 2012. Repeat views of the lumbar spine are recommended. There is a focus of increased activity within the right mid cervical spine on the posterior images. A statistical basis, this is degenerative/arthritic. IMPRESSION: 1. Multiple foci of increased activity, statistically secondary to degenerative and postsurgical change. 2. It would seem prudent to obtain a conventional radiographic study of the lumbar spine for correlative purposes. 3. There are no lesions viewed as highly suspicious for skeletal metastasis Electronically signed by: Dawood Bejarano M.D. 12/23/2017 1:53 PM Dictated Date/Time: 12/23/2017 1:48 PM
== END | disposition home or self-care (01) ==
LOC: C.NUCL 10:07
PROVIDERS: ATTEND Urology
DX: C61 Malignant neoplasm of prostate (principal)

== ENCOUNTER 2019-03-30 07:37 | Inpatient (IN) ==
--- NOTE | 2019-03-24 13:23 | PAT Medication Instructions ---
Medication Instructions Date of Service March 24, 2019 Home Medications cranberry 400 mg PO QAM ibuprofen 400 mg PO BID magnesium 250 mg PO QAM multivitamin 1 tab PO QAM tamsulosin [Flomax] 0.4 mg PO HS vitamin E 200 unit PO QAM vitamin K2 40 mcg PO QAM zinc sulfate 220 mg PO QAM cholecalciferol (vitamin D3) 5,000 unit tablet 10,000 units PO QAM psyllium seed (sugar) oral powder 1 tsp PO QAM L. acidophilus-dig enz cmb 5 [Probiotic-Digestive Enzymes] 1 cap PO QAM arginine (L-arginine) 500 mg PO BID astaxanthin 4 mg PO QAM azithromycin 250 mg PO BID cholecalciferol (vitamin D3) [Vitamin D3] 5,000 unit PO QPM doxycycline hyclate 200 mg PO BID furosemide 20 mg PO QAM ginkgo biloba 120 mg PO BID hydroxychloroquine 200 mg PO BID salmon oil-omega-3 fatty acids [[place] Oil-1000] 1 cap PO QAM Continue as directed azithromycin 250 mg PO BID doxycycline hyclate 200 mg PO BID ASK your surgeon for instructions ibuprofen 400 mg PO BID ASK your prescriber and surgeon hydroxychloroquine 200 mg PO BID STOP taking 2 weeks before surgery cranberry 400 mg PO QAM vitamin E 200 unit PO QAM psyllium seed (sugar) oral powder 1 tsp PO QAM arginine (L-arginine) 500 mg PO BID astaxanthin 4 mg PO QAM ginkgo biloba 120 mg PO BID salmon oil-omega-3 fatty acids [[place] Oil-1000] 1 cap PO QAM DO NOT take the morning of surgery magnesium 250 mg PO QAM multivitamin 1 tab PO QAM vitamin K2 40 mcg PO QAM zinc sulfate 220 mg PO QAM cholecalciferol (vitamin D3) 5,000 unit tablet 10,000 units PO QAM psyllium seed (sugar) oral powder 1 tsp PO QAM furosemide 20 mg PO QAM L. acidophilus-dig enz cmb 5 [Probiotic-Digestive Enzymes] 1 cap PO QAM Other Notes If you have any questions please call us at [phone] or [phone] or [phone] or [phone]
--- NOTE | 2019-03-25 09:25 | Anesthesiology Consultation ---
Date of Service March 25, 2019 Assessment & Plan (1) Encounter for pre-operative examination: Chart Review Chart Review: Acceptable Risk for Surgery and Patient seen in Pre Admission Testing Teaching & Discussion Pre-Anesthesia Teaching/Discussion Notes: Instructed NPO after midnight before surgery,except medications with 15 cc of water. Medication instructions provided according to the PAT guidelines. History Surgery Operation Date: 03/30/19 09:55 Proposed Procedures p Left Shoulder Tournier Resurfacing Versus Hemiarthroplasty Versus - Sanya Love DO s Total Shoulder Arthroplasty - Sanya Love DO Height/Weight Height: 5 ft 9 in Weight: 86.4 kg Allergies Allergy/AdvReac Type Severity Reaction Status Date / Time tetanus toxoid, adsorbed Allergy Intermediate HIVES Verified 03/25/19 10:31 Medications Home Medications Medication Instructions Recorded Confirmed Last Taken cranberry 400 mg PO QAM 11/09/18 03/25/19 11/09/18 ibuprofen 400 mg PO BID 11/09/18 03/25/19 11/09/18 magnesium 250 mg PO QAM 11/09/18 03/25/19 11/09/18 multivitamin 1 tab PO QAM 11/09/18 03/25/19 11/09/18 tamsulosin [Flomax] 0.4 mg PO HS 11/09/18 03/25/19 11/08/18 vitamin E 200 unit PO QAM 11/09/18 03/25/19 11/09/18 vitamin K2 40 mcg PO QAM 11/09/18 03/25/19 11/09/18 zinc sulfate 220 mg PO QAM 11/09/18 03/25/19 11/09/18 cholecalciferol (vitamin D3) 5,000 10,000 units PO QAM tab 01/14/19 03/25/19 Unknown unit tablet psyllium seed (sugar) oral powder 1 tsp PO QAM 01/14/19 03/25/19 Unknown L. acidophilus-dig enz cmb 5 1 cap PO QAM 03/24/19 03/25/19 Unknown [Probiotic-Digestive Enzymes] arginine (L-arginine) 500 mg PO BID 03/24/19 03/25/19 Unknown astaxanthin 4 mg PO QAM 03/24/19 03/25/19 Unknown azithromycin 250 mg PO BID 03/24/19 03/25/19 Unknown cholecalciferol (vitamin D3) 5,000 unit PO QPM 03/24/19 03/25/19 Unknown [Vitamin D3] doxycycline hyclate 200 mg PO BID 03/24/19 03/25/19 Unknown furosemide 20 mg PO QAM 03/24/19 03/25/19 Unknown ginkgo biloba 120 mg PO BID 03/24/19 03/25/19 Unknown salmon oil-omega-3 fatty acids 1 cap PO QAM 03/24/19 03/25/19 Unknown [[place] Oil-1000] fluconazole 200 mg PO BID 03/25/19 03/25/19 Unknown hydroxychloroquine 200 mg tablet 200 mg PO BID 03/25/19 03/25/19 Unknown Past Medical History Medical History Balance problems Emphysema lung suggested per CXR Foot lesion left foot ? fungal reaction improving on fluconazole (surgeon made aware) History of prostate cancer s/p XRT Lyme disease s/p negative recheck labs but patient still symptomatic so patient on treatment chronically (hydroxychloroquine/azithromycin/doxy) Osteoarthritis Urinary urgency Exercise / Class Metabolic Activity II 4-5 Yardwork/Stairs/Walk up hill Past Family History Family History Father Diabetes Mother Hypertension Hypercholesteremia Past Surgical History Surgical History History of bilateral knee replacement History of dental surgery History of right shoulder replacement History of tonsillectomy and adenoidectomy Hx of arthroscopic knee surgery both knees Hx of left cataract extraction Hx of prostate biopsy Hx of right cataract extraction Previous back surgery Past Anesthesia History No Hx of Anesthesia Complications and No Family Hx of Anesthesia Complications History of PONV No Hx of PONV and Hx of Motion Sickness Social History Smoking Status: Never smoker Do You Dip or Chew Tobacco: No Hx Alcohol Use: Yes alcohol intake frequency: holidays/special occasions only Hx Substance Use: No Review of Systems Reflux associated with doxycycline. Patient denies chest pain, shortness of breath, dyspnea on exertion, cough, wheezing, palpitations. Physical Exam Vital Signs VITALS BP 139/83 P 54 (per patient, chronic bradycardia- asymptomatic) TEMP 97.5 SP02 96%RA RESP 14 PHYSICAL Full neck and c-spine range of motion. Full TMJ range of motion. TMD 3.5 finger breaths Mallampati Score 1 Dentition: missing lower front right tooth/upper front left tooth, permanent implant molar Lungs: clear throughout to auscultation Cardiac: regular rate and rhythm, no murmurs noted Spine: normal Carotid arteries: negative bruit Extremities: no edema Testing Laboratory Results 03/25/19 09:35 03/25/19 09:35 PT 10.7 Seconds (9.0-12.0) 03/25/19 09:35 INR 1.0 (0.9-1.1) 03/25/19 09:35 APTT 27.8 Seconds (21.0-31.0) 03/25/19 09:35 Hemoglobin A1c 6.0 % (4.5-5.6) H 03/25/19 09:35 Urine Color Yellow 03/25/19 09:35 Urine Appearance Clear (Clear) 03/25/19 09:35 Urine pH 7.0 (4.5-7.5) 03/25/19 09:35 Ur Specific [place] 1.014 (1.000-1.030) 03/25/19 09:35 Urine Protein Negative (Negative) 03/25/19 09:35 Urine Glucose (UA) Negative (Negative) 03/25/19 09:35 Urine Ketones Negative (Negative) 03/25/19 09:35 Urine Nitrite Negative (Negative) 03/25/19 09:35 Ur Leukocyte Esterase Negative (Negative) 03/25/19 09:35 Blood Type O Positive 03/25/19 09:35 Antibody Screen NEGATIVE 03/25/19 09:35 *Surgeon made aware of low WBC; chronic leukocytosis (unknown etiology)* Electrocardiogram Date: 11/09/18 SR with sinus arrhythmia at 60bpm. iRBBB. Chest X-Ray Date: 03/25/19 Atherosclerosis of the aortic arch. Cardiac silhouette mildly enlarged. Lungs are hyperinflated. No focal opacity. No pleural effusion or pneumothorax. Right shoulder arthroplasty. Old right anterior fourth rib fracture. Upper abdomen normal. Findings suggest emphysema. No focal infiltrate to suggest pneumonia. Cardiomegaly.
--- NOTE | 2019-03-25 10:17 | XRay Report ---
XR chest Pre-admission PA/Lat CLINICAL HISTORY: 78 years-old Male presenting with preoperative assessment. TECHNIQUE: PA and lateral views of the chest were obtained. COMPARISON: 11/09/2018. FINDINGS: Atherosclerosis of the aortic arch. Cardiac silhouette mildly enlarged. Lungs are hyperinflated. No f ocal opacity. No pleural effusion or pneumothorax. Right shoulder arthroplasty. Old right anterior fo urth rib fracture. Upper abdomen normal. IMPRESSION: 1. Findings suggest emphysema. No focal infiltrate to suggest pneumonia. 2. Cardiomegaly. Electronically signed by: Logan Cochran M.D. 03/25/2019 10:15 AM
[2019-03-25 10:31] LABS: Basophils # (auto) 0.03 K/uL (0-0.2); Basophils % (auto) 0.9 %; Eosinophils # (auto) 0.19 K/uL (0-0.5); Eosinophils % (auto) 5.8 %; Hematocrit (blood only) 40.6 % (42-52); Immature Granulocytes # (auto) 0.01 K/uL (0.00-0.02); Immature Granulocytes % (auto) 0.3 %; Lymphocytes # (auto) 0.96 K/uL (1.2-3.4); Lymphocytes % (auto) 29.4 %; Mean Corpuscular Hgb Conc 34.5 g/dL (32-36); Mean Corpuscular Volume 93.3 fL (80-100); Mean Platelet Volume 10.7 fL (7.4-10.4); Monocytes # (auto) 0.33 K/uL (0.11-0.59); Monocytes % (auto) 10.1 %; Neutrophils # (auto) 1.74 K/uL (1.4-6.5); Neutrophils % (auto) 53.5 %; Platelet Count 139 K/uL (130-400); RDW Coefficient of Variation 13.7 % (11.5-14.5); RDW Standard Deviation 46.8 fL (36.4-46.3); Red Blood Count 4.35 M/uL (4.7-6.1); White Blood Count 3.26 K/uL (4.8-10.8)
[2019-03-25 10:32] LABS: Appearance Urine Clear (Clear); Bilirubin Urine Negative (Negative); Blood Urine Negative (Negative); Color Urine Yellow; Glucose Urine UA Negative (Negative); Ketones Urine Negative (Negative); Leukocyte Esterase Urine Negative (Negative); Nitrite Urine Negative (Negative); Protein Urine Negative (Negative); Specific Gravity Urine 1.014 (1.000-1.030); Urobilinogen Urine Negative (Negative)
[2019-03-25 10:37] LABS: Estimated Average Glucose 126 mg/dl
[2019-03-25 10:38] LABS: Albumin Level 3.9 gm/dl (3.4-5.0); BUN Creatinine Ratio 24.7 (10-20); Calcium 9.4 mg/dl (8.5-10.1); Creatinine Clr Calc Pharmacy 65.9 ml/min; Est GFR (African American) 83.6; Est GFR (Non-African American) 72.1; Potassium 4.2 mmol/L (3.5-5.1)
[2019-03-25 10:44] LABS: Partial Thromboplastin Time 27.8 Seconds (21.0-31.0); Prothrombin Time 10.7 Seconds (9.0-12.0)
--- NOTE | 2019-03-26 08:36 | History & Physical Report ---
Date of Service March 26, 2019 date of surgery: 03-30-19 Assessment & Plan (1) Arthritis of left glenohumeral joint: Further care discussed with patient and at this point in time he has failed conservative measures and would like to proceed with a left shoulder resurfacing vs total shoulder replacement at [facility]. will plan on d/c home with HHPT he used this after his right shoulder surgery. Patient will have follow up appointment in our office two weeks post op for staple removal and re-ev aluation. Patient otherwise has no other questions or concerns. History of Present Illness Chief Complaint: left shoulder pain Primary Care Provider: Telma Cohen MD Mr Garcias is a 78 year old male who complains of left shoulder pain, presents for pre-op eval prior to a left shoulder resurfacing vs total shoulder replacement at [facility]. He presents with pain and decreased range of motion in the left shoulder. He states that the symptoms have been chronic non-traumatic. Currently the patient states that the symptoms are moderate-severe. The pain is described as aching and stabbing. He rates his worst pain as 8/10. He rates his current pain as 5/10. The symptoms are aggravated by daily activities and lifting. the pain does sometimes wake him at night. Trey states that the symptoms are relieved by no specific activity. Patient is currently using Ibuprofen Patient had right shoulder resurfacing done by Dr. Love 2016. he has tried cortisone injections without relief Allergies Allergy/AdvReac Type Severity Reaction Status Date / Time tetanus toxoid, adsorbed Allergy Intermediate HIVES Verified 03/25/19 10:31 Home Medications Home Medications Medication Instructions Recorded Confirmed Type cranberry 400 mg PO QAM 11/09/18 03/25/19 History ibuprofen 400 mg PO BID 11/09/18 03/25/19 History magnesium 250 mg PO QAM 11/09/18 03/25/19 History multivitamin 1 tab PO QAM 11/09/18 03/25/19 History tamsulosin [Flomax] 0.4 mg PO HS 11/09/18 03/25/19 History vitamin E 200 unit PO QAM 11/09/18 03/25/19 History vitamin K2 40 mcg PO QAM 11/09/18 03/25/19 History zinc sulfate 220 mg PO QAM 11/09/18 03/25/19 History cholecalciferol (vitamin D3) 5,000 10,000 units PO QAM tab 01/14/19 03/25/19 History unit tablet psyllium seed (sugar) oral powder 1 tsp PO QAM 01/14/19 03/25/19 History L. acidophilus-dig enz cmb 5 1 cap PO QAM 03/24/19 03/25/19 History [Probiotic-Digestive Enzymes] arginine (L-arginine) 500 mg PO BID 03/24/19 03/25/19 History astaxanthin 4 mg PO QAM 03/24/19 03/25/19 History azithromycin 250 mg PO BID 03/24/19 03/25/19 History cholecalciferol (vitamin D3) 5,000 unit PO QPM 03/24/19 03/25/19 History [Vitamin D3] doxycycline hyclate 200 mg PO BID 03/24/19 03/25/19 History furosemide 20 mg PO QAM 03/24/19 03/25/19 History ginkgo biloba 120 mg PO BID 03/24/19 03/25/19 History salmon oil-omega-3 fatty acids 1 cap PO QAM 03/24/19 03/25/19 History [[place] Oil-1000] fluconazole 200 mg PO BID 03/25/19 03/25/19 History hydroxychloroquine 200 mg tablet 200 mg PO BID 03/25/19 03/25/19 History Past Med/Surg History Medical History Balance problems Emphysema lung suggested per CXR Foot lesion left foot ? fungal reaction improving on fluconazole (surgeon made aware) History of prostate cancer s/p XRT Lyme disease s/p negative recheck labs but patient still symptomatic so patient on treatment chronically (hydroxychloroquine/azithromycin/doxy) Osteoarthritis Urinary urgency Surgical History History of bilateral knee replacement History of dental surgery History of right shoulder replacement History of tonsillectomy and adenoidectomy Hx of arthroscopic knee surgery both knees Hx of left cataract extraction Hx of prostate biopsy Hx of right cataract extraction Previous back surgery Family History Father Diabetes Mother Hypertension Hypercholesteremia Social History Preferred Language: Croatian Communication Ability: Effective Beliefs That Will Affect Care: None marital status: Current Living Situation: Spouse current occupational status: retired Feels Safe at Home: Yes Smoking Status: Never smoker Second Hand Exposure: No ; Hx Alcohol Use: Yes Hx Substance Use: No Seatbelt Use: always Review of Systems Review of Systems: All systems reviewed & are unremarkable except as noted in HPI & below Constitutional: no fever, no chills and no sweats Respiratory: no cough and no dyspnea Cardiovascular: no chest pain, no dyspnea and no orthopnea Gastrointestinal: no abdominal pain, no nausea and no vomiting Musculoskeletal: as per Subjective / HPI Physical Exam Physical Exam: Ht: 5ft 9in Wt: 86.4kg BP: 106/68 Pulse: 68 Constitutional: WD/WN, vitals as above no acute distress Respiratory: normal respiratory effort, lungs clear to auscultation no respiratory distress, no labored breathing and does not use accessory muscles Cardiovascular: RRR, no murmur, no edema Gastrointestinal (Abdomen): normal bowel sounds, soft, nontender, no hepatosplenomegaly Musculoskeletal: Left Shoulder Physical Exam- there is no ecchymosis, warmth or erythema noted, there is crepitation with active motion, he has tenderness to the anterior aspect shoulder and subacromial space, as well as the AC joint. Belly press - Positive. Sanchez Positive. Cross Body Positive. Neer's - positive. Strength tests - External rotation 4/5, Supraspinatus 4/5 no atrophy Range of Motion left shoulder: Active ROM - Flexion: 120 degrees, Ext Rot 90 Flex: 10 degrees, Abduction: 25 degrees, Factors: pain, Description: Pain with ROM. Passive ROM - Flexion 120 degrees. Neurovascular- Radial pulse palpable, radial/median/ulnar nerves intact. Elbow- full painless range of motion, no tenderness. Results & Data Diagnostic Findings left shoulder x-ray: shows left shoulder Glenohumeral DJD bone on bone with subchondral sclerosis, decreased joint space and osteophyte formation. no acute bony pathology.
[~2019-03-30 07:37] MED LIST changes: -ACET-24 PO; -ASTA1CAP PO; -ASTA1CAP4 PO; -CLB200 PO; +DEXAMETHASONE SOD INJ 4 MG/ML VIAL ONE; +EPINEPHrine INJ 1 MG/ML AMP ONE; -FIBER PO; -GLUC1CAP35; -KRIL1CAP21; +LR 15ML/HR IV SCH; -MAGN250T3 PO; -MENA40TA PO; -MISCTAB26 PO; -MULT-1027 PO; -OMEG10007 PO; -ONDA-170 PO; +ROPIVACAINE 0.5% 5 MG/ML 30 ML VIAL ONE; -RXC5 PO; -SENN1TAB80 PO; -SUPER BETA PROSTATE PO; -VITA100C2 PO; -[UNRECOGNIZED DRUG - CODE] PO
--- NOTE | 2019-03-30 08:36 | History & Physical Bridge Note ---
Date of Service March 30, 2019 History & Physical Bridge Note I have examined the patient, reviewed the History & Physical and in the interval since the performance of the History & Physical I have noted the following changes of clinical significance: no changes noted
[2019-03-30] MEDS ORDERED: CEFAZOLIN 2,000 MG/15 ML IV PUSH IV ONE (08:44)
[2019-03-30] MEDS ORDERED: CeleBREX 200 MG CAP ONE (08:44)
[2019-03-30] MEDS ORDERED: ACETAMINOPHEN 500 MG TAB ONE (08:44)
[2019-03-30] MEDS ORDERED: GABAPENTIN 300 MG CAP ONE (08:45)
[2019-03-30] MEDS ORDERED: FAMOTIDINE 20 MG TAB ONE (08:45)
[2019-03-30] MEDS ORDERED: dexAMETHasone 4 MG TAB PO ONE (08:45)
[2019-03-30] MEDS ORDERED: METOCLOPRAMIDE HCL 10 MG TABLET ONE (08:46)
[2019-03-30] MEDS ORDERED: BACITRACIN INJ 50,000 UNIT VIAL ONE (09:35)
[2019-03-30] MEDS ORDERED: DEXAMETHASONE SOD INJ 4 MG/ML VIAL ONE (10:40)
[2019-03-30] MEDS ORDERED: PROPOFOL IV EMULSION 10 MG/ML 20 ML VIAL IV ONE (10:40)
[2019-03-30] MEDS ORDERED: MIDAZOLAM HCL 1 MG/ML 2ML VIAL ONE ×2 (10:40)
[2019-03-30] MEDS ORDERED: SUCCINYLCHOLINE CHLORIDE 20 MG/ML 10 ML VIAL ONE (10:40)
[2019-03-30] MEDS ORDERED: ONDANSETRON INJ 2 MG/ML 2 ML VIAL ONE (10:40)
[2019-03-30] MEDS ORDERED: PHENYLEPHRINE HCL 10 MG/ML VIAL ONE ×2 (10:40)
[2019-03-30] MEDS ORDERED: NEOSTIGMINE METHYLSULFATE 5 MG/5 ML SYR ONE (10:40)
[2019-03-30] MEDS ORDERED: VASOPRESSIN 20 UNIT/ML VIAL ONE (10:40)
[2019-03-30] MEDS ORDERED: fentaNYL citrate 100 MCG/2 ML VIAL ONE (10:40)
[2019-03-30] MEDS ORDERED: LIDOCAINE HCL 2% 2 ML VIAL/AMP(20MG/ML) INFIL ONE (10:40)
[2019-03-30] MEDS ORDERED: ePHEDrine sulfate 50 MG/ML AMP ONE (10:40)
[2019-03-30] MEDS ORDERED: GLYCOPYRROLATE 0.2 MG/ML VIAL ONE ×2 (10:40→11:28)
[2019-03-30] MEDS ORDERED: ROCURONIUM BROMIDE 10 MG/ML 5 ML VIAL ONE (11:28)
--- NOTE | 2019-03-30 11:30 | Operative Report ---
Post Operative Report Pre & Post Diagnosis Operation Date: 03/30/19 09:55 Pre-Op Diagnosis: Primary Osteoarthritis, Left Shoulder Post-Op Diagnosis: Primary Osteoarthritis, Left Shoulder Procedure Operation Date: 03/30/19 09:55 Actual Procedures p Left Shoulder Resurfacing Hemiarthroplasty(Left) utilizing 50 x 16 mm Tournier hemiarthroplasty- Sanya Love DO Surgeon Sanya Love DO [employer] Gustavo RANDOLPH Estimated Blood Loss 10 Findings Consistent with Post-Op Diagnosis Patient presents with glenohumeral DJD with articular cartilage loss subchondral cystic changes on the humeral head glenoid was in satisfactory condition otherwise patient failed attempts at conservative management osteophytes were noted around the margin of the anterior superior inferior glenoid which were all removed and a moderate effusion was noted Specimens Bone and cartilage Drains Medium bore Hemovac Disposition Accompanied Patient To Recovery: No Disposition: Recovery Room Indications Patient presents with ongoing complaints of pain to the left glenohumeral joints patient underwent successful right shoulder hemiarthroplasty presents today for left shoulder hemiarthroplasty above intraoperative findings were noted. Description of Procedure After initiation of general anesthesia the left shoulder region was socially prepped and draped a pectoral interval incision was made dissection carried down through subcutaneous tissues cephalic vein was gently retracted out of harm's way with the deltoid laterally the anterior aspect of the subscapularis was then identified it was reflected off the anterior aspect of the humeral head externally rotating the humerus humeral head became easily visible the inferior osteophytes were removed the capsule was released with special attention paid to protect neurovascular structures Nerve at all times socially the glenoid was evaluated letter was noted be in excellent condition the wound was irrigated with copious muscle sterile signs as was the deep wound the humeral head was reamed to a size 50 x 16 give excellent coverage and stability subsequently a swivel lock anchor was placed over the humeral head with suture surgical tapes for repair of the subscapularis the final trial was tried gave excellent stability through full range of motion subsequently the final component was placed the subscapularis repaired back to bed of bleeding bone utilizing the Arthrex surgical tape technique the it was then oversewn with 0 Vicryl subcu and deltopectoral interval was closed with #1 Vicryl subcuticular 3-0 Vicryl skin was closed with skin clips sterile compressive dressings placed please note a medium Hemovac in place a deep wound patient told procedure well was taken recovery in stable condition please note Jose RANDOLPH was necessary prepping draping retraction wound closure defect subcu skin was necessary for the case I attest to the content of the Intraoperative Record and any orders documented therein. Any exceptions are noted below.
[2019-03-30] MEDS ORDERED: HYDROmorphone INJ 1 MG/ML SYRINGE IV PRN ×2 (12:08→13:11)
[2019-03-30] MEDS ORDERED: FLUMAZENIL 0.1 MG/1 ML 10 ML VIAL IV PRN (12:08)
[2019-03-30] MEDS ORDERED: LABETALOL HCL IV 5 MG/ML 20ML IV PRN (12:08)
[2019-03-30] MEDS ORDERED: ePHEDrine sulfate 50 MG/ML AMP IV PRN ×2 (12:08→12:23)
[2019-03-30] MEDS ORDERED: ATROPINE SULFATE 0.1 MG/ML 10ML SYR IV PRN ×2 (12:08→12:23)
[2019-03-30] MEDS ORDERED: PROMETHAZINE HCL 12.5 MG in SODIUM CHLORIDE 0.9% 50 ML IV PRN (12:08)
[2019-03-30] MEDS ORDERED: NALOXONE HCL 0.4 MG/1 ML VIAL/CARP IV PRN ×2 (12:08→13:11)
[2019-03-30] MEDS ORDERED: ONDANSETRON INJ 2 MG/ML 2 ML VIAL IV PRN ×2 (12:08→13:11)
--- NOTE | 2019-03-30 12:20 | XRay Report ---
XR shoulder LT min 2V routine HISTORY: 78 years-old Male Post shoulder surgery left shoulder arthroplasty COMPARISON: Chest radiograph 03/25/2019 TECHNIQUE: 2 views of the left shoulder FINDINGS: Prosthetic humeral head has been placed in the interval. Satisfactory alignment of the glenohumeral a nd AC joints. Bone fragment or soft tissue calcification measuring 1.4 cm is noted superiorly and lat erally to the humeral head. No acute fracture or dislocation identified. Expected postsurgical soft t issue swelling and deep tissue air with surgical drainage catheter. Left lung base opacities are note d. IMPRESSION: Satisfactory alignment of the left shoulder arthroplasty. The above report was generated using voice recognition software. It may contain grammatical, syntax o r spelling errors. Electronically signed by: Salvatore Olvera M.D. 03/30/2019 12:18 PM
--- NOTE | 2019-03-30 12:54 | Anesthesiology Progress Note ---
Date of Service March 30, 2019 Anesthesia Post Procedure Vital Signs Vital Signs: Temp Pulse Pulse Resp BP Pulse Ox 03/30/19 12:40 36.4 C L 66 16 86/67 L 96 03/30/19 12:30 67 16 104/65 96 03/30/19 12:20 74 16 107/60 97 03/30/19 12:10 68 16 108/63 97 03/30/19 12:01 36.2 C L 71 16 115/66 97 03/30/19 08:21 36.4 C L 45 L 22 116/73 94 Pain Intensity Left Shoulder: Pain Intensity: 1 Transfer of Care Handoff Completed per policy Notes Mental Status: alert / awake / arousable Patient Amnestic to Procedure: Yes Nausea / Vomiting: adequately controlled Pain: adequately controlled Airway Patency, RR, SpO2: stable & adequate BP & HR: stable & adequate Hydration State: stable & adequate Anesthetic Complications: no major complications apparent
[2019-03-30] MEDS ORDERED: MAGNESIUM HYDROXIDE SUSP 30 ML UDC PO PRN (13:11)
[2019-03-30] MEDS ORDERED: ALUMINUM/MAGNESIUM SUSP 30 ML UDC PO PRN (13:11)
[2019-03-30] MEDS ORDERED: OXYCODONE HCL IR 5 MG TAB (IMMEDIATE RELEASE) PO PRN (13:11)
[2019-03-30] MEDS ORDERED: METOCLOPRAMIDE HCL INJ 5 MG/ML 2 ML VIAL IV PRN (13:11)
[2019-03-30] MEDS ORDERED: BISACODYL 10 MG SUPP PR PRN (13:11)
[2019-03-30] MEDS: SODIUM CHLORIDE 0.9% 1000ML 1,000 ML IV SCH ×2 (13:15→22:49)
[2019-03-30] MEDS: ACETAMINOPHEN 500 MG TAB PO SCH ×2 (15:25→22:49)
[2019-03-30] MEDS: KETOROLAC TROMETHAMINE 15 MG/ML VIAL IV SCH ×2 (15:25→21:30)
[2019-03-30] MEDS: CEFAZOLIN 2000MG 2,000 MG/15 ML SYR IV SCH (17:02)
[2019-03-30] MEDS ORDERED: CHOLECALCIFEROL 1,000 UNITS TAB PO SCH (21:00)
[2019-03-30] MEDS ORDERED: TAMSULOSIN HCL 0.4 MG CAP PO SCH (21:00)
[2019-03-30] MEDS ORDERED: SENNA 8.6 MG TAB PO SCH (21:00)
[2019-03-30] MEDS: AZITHROMYCIN 250 MG TAB PO SCH (21:27)
[2019-03-30] MEDS: FLUCONAZOLE 100 MG TAB PO SCH (21:28)
[2019-03-30] MEDS: DOCUSATE SODIUM 100 MG CAP PO SCH (21:29)
[2019-03-30] MEDS: DOXYCYCLINE HYCLATE 100 MG CAP PO SCH (21:29)
[2019-03-31] MEDS: CEFAZOLIN 2000MG 2,000 MG/15 ML SYR IV SCH (00:20)
[2019-03-31] MEDS: KETOROLAC TROMETHAMINE 15 MG/ML VIAL IV SCH ×2 (03:44→10:27)
[2019-03-31] MEDS: ACETAMINOPHEN 500 MG TAB PO SCH (05:44)
[2019-03-31 06:21] LABS: Hematocrit (blood only) 33.6 % (42-52); Hemoglobin 11.6 g/dL (14.0-18.0); Immature Granulocytes # (auto) 0.02 K/uL (0.00-0.02); Immature Granulocytes % (auto) 0.2 %; Lymphocytes # (auto) 0.72 K/uL (1.2-3.4); Mean Corpuscular Hgb Conc 34.5 g/dL (32-36); Mean Corpuscular Volume 92.6 fL (80-100); Monocytes # (auto) 0.28 K/uL (0.11-0.59); Monocytes % (auto) 3.1 %; Neutrophils % (auto) 88.7 %; Platelet Count 110 K/uL (130-400); RDW Coefficient of Variation 13.7 % (11.5-14.5); RDW Standard Deviation 46.7 fL (36.4-46.3); Red Blood Count 3.63 M/uL (4.7-6.1); White Blood Count 9.02 K/uL (4.8-10.8)
[2019-03-31 06:56] LABS: BUN Creatinine Ratio 31.9 (10-20); Calcium 8.9 mg/dl (8.5-10.1); Creatinine Clr Calc Pharmacy 58.2 ml/min; Est GFR (African American) 79.7; Est GFR (Non-African American) 68.8; Potassium 4.5 mmol/L (3.5-5.1)
--- NOTE | 2019-03-31 07:26 | Orthopedic Progress Note ---
Date of Service March 31, 2019 Assessment & Plan (1) History of left shoulder replacement: POD #1 s/p left shoulder resurfacing PT/OT no ER beyond neutral sling/ice plan for d/c home with OPPT Subjective POD #1 s/p left shoulder resurfacing denies CP/SOB denies F/chills denies N/v pain currently 09/20 Physical Exam Physical Exam: Vital Signs Temp Pulse Pulse Pulse Resp BP Pulse Ox 03/31/19 07:09 36.7 C 52 L 14 138/75 95 03/31/19 03:46 36.5 C 46 L 16 139/69 96 03/30/19 23:09 36.5 C 46 L 16 115/63 95 03/30/19 19:49 36.5 C 50 L 17 102/56 L 94 03/30/19 16:16 36.9 C 53 L 17 105/63 94 03/30/19 15:32 36.4 C L 53 L 17 95/57 L 93 03/30/19 14:12 36.3 C L 54 L 16 105/66 95 03/30/19 13:37 36.4 C L 59 L 16 107/65 95 03/30/19 13:10 36.4 C L 66 15 100/63 96 03/30/19 12:50 64 16 101/59 L 96 03/30/19 12:40 36.4 C L 66 16 86/67 L 96 03/30/19 12:30 67 16 104/65 96 03/30/19 12:20 74 16 107/60 97 03/30/19 12:10 68 16 108/63 97 03/30/19 12:01 36.2 C L 71 16 115/66 97 03/30/19 08:21 36.4 C L 45 L 22 116/73 94 Intake and Output 03/30/19 03/31/19 03/31/19 22:59 06:59 14:59 Intake Total 1196.667 / 3915.00 0 718.333 / 3915.000 Output Total 275 / 935 650 / 935 Balance 921.667 / 2980.000 68.333 / 2980.000 Intake: IV 956.667 / 2175.000 718.333 / 2175.000 Nss 1000ML 1,0 00 ml @ 100 mls/ 956.667 / 1675.000 718.333 / 1675.000 hr IV .Q10H SC H Rx#:[id number] Oral 240 / 240 Output: Urine 250 / 900 650 / 900 Drain Output / Left Shoulder Constitutional: WD/WN, vitals as above no acute distress Musculoskeletal: dressing clean and dry, NVDI, Rad +2, radial/median/ulnar nerves intact; no pain with hand/wrist/elbow motion Results & Data Vital Signs (Past 12 Hours) Vital Signs Temp Pulse Resp BP Pulse Ox 03/31/19 07:09 36.7 C 52 L 14 138/75 95 03/31/19 03:46 36.5 C 46 L 16 139/69 96 03/30/19 23:09 36.5 C 46 L 16 115/63 95 03/30/19 19:49 36.5 C 50 L 17 102/56 L 94 Laboratory Results Laboratory Results WBC 9.02 K/uL (4.8-10.8) 03/31/19 06:02 RBC 3.63 M/uL (4.7-6.1) L 03/31/19 06:02 Hgb 11.6 g/dL (14.0-18.0) L 03/31/19 06:02 Hct 33.6 % (42-52) L 03/31/19 06:02 MCV 92.6 fL (80-100) 03/31/19 06:02 MCH 32.0 pg (25-34) 03/31/19 06:02 MCHC 34.5 g/dL (32-36) 03/31/19 06:02 RDW Std Deviation 46.7 fL (36.4-46.3) H 03/31/19 06:02 RDW Coeff of Kaela 13.7 % (11.5-14.5) 03/31/19 06:02 Plt Count 110 K/uL (130-400) L 03/31/19 06:02 MPV 10.0 fL (7.4-10.4) 03/31/19 06:02 Immature Gran % (Auto) 0.2 % 03/31/19 06:02 Neut % (Auto) 88.7 % 03/31/19 06:02 Lymph % (Auto) 8.0 % 03/31/19 06:02 Lassen % (Auto) 3.1 % 03/31/19 06:02 Eos % (Auto) 0.0 % 03/31/19 06:02 Baso % (Auto) 0.0 % 03/31/19 06:02 Immature Gran # (Auto) 0.02 K/uL (0.00-0.02) 03/31/19 06:02 Neut # (Auto) 8.00 K/uL (1.4-6.5) H 03/31/19 06:02 Lymph # (Auto) 0.72 K/uL (1.2-3.4) L 03/31/19 06:02 Lassen # (Auto) 0.28 K/uL (0.11-0.59) 03/31/19 06:02 Eos # (Auto) 0.00 K/uL (0-0.5) 03/31/19 06:02 Baso # (Auto) 0.00 K/uL (0-0.2) 03/31/19 06:02 PT 10.7 Seconds (9.0-12.0) 03/25/19 09:35 INR 1.0 (0.9-1.1) 03/25/19 09:35 APTT 27.8 Seconds (21.0-31.0) 03/25/19 09:35 PTT Ratio 1.0 03/25/19 09:35 Sodium 141 mmol/L (136-145) 03/31/19 06:02 Potassium 4.5 mmol/L (3.5-5.1) 03/31/19 06:02 Chloride 110 mmol/L (98-107) H 03/31/19 06:02 Carbon Dioxide 25 mmol/L (21-32) 03/31/19 06:02 Anion Gap 6.0 (3-11) 03/31/19 06:02 BUN 33 mg/dl (7-18) H 03/31/19 06:02 Creatinine 1.03 mg/dl (0.6-1.4) 03/31/19 06:02 Est Cr Clr Drug Dosing 58.2 ml/min 03/31/19 06:02 Est GFR ( Amer) 79.7 03/31/19 06:02 Est GFR (Non-Af Amer) 68.8 03/31/19 06:02 BUN/Creatinine Ratio 31.9 (10-20) H 03/31/19 06:02 Glucose 143 mg/dl (70-99) H 03/31/19 06:02 Estimat Average Glucose 126 mg/dl 03/25/19 09:35 Hemoglobin A1c 6.0 % (4.5-5.6) H 03/25/19 09:35 Calcium 8.9 mg/dl (8.5-10.1) 03/31/19 06:02 Albumin 3.9 gm/dl (3.4-5.0) 03/25/19 09:35 Urine Color Yellow 03/25/19 09:35 Urine Appearance Clear (Clear) 03/25/19 09:35 Urine pH 7.0 (4.5-7.5) 03/25/19 09:35 Ur Specific [place] 1.014 (1.000-1.030) 03/25/19 09:35 Urine Protein Negative (Negative) 03/25/19 09:35 Urine Glucose (UA) Negative (Negative) 03/25/19 09:35 Urine Ketones Negative (Negative) 03/25/19 09:35 Urine Blood Negative (Negative) 03/25/19 09:35 Urine Nitrite Negative (Negative) 03/25/19 09:35 Urine Bilirubin Negative (Negative) 03/25/19 09:35 Urine Urobilinogen Negative (Negative) 03/25/19 09:35 Ur Leukocyte Esterase Negative (Negative) 03/25/19 09:35 Blood Type O Positive 03/25/19 09:35 Antibody Screen NEGATIVE 03/25/19 09:35 Diagnostic Findings XR shoulder LT min 2V routine HISTORY: 78 years-old Male Post shoulder surgery left shoulder arthroplasty COMPARISON: Chest radiograph 03/25/2019 TECHNIQUE: 2 views of the left shoulder FINDINGS: Prosthetic humeral head has been placed in the interval. Satisfactory alignment of the glenohumeral and AC joints. Bone fragment or soft tissue calcification measuring 1.4 cm is noted superiorly and laterally to the humeral head. No acute fracture or dislocation identified. Expected postsurgical soft tissue swelling and deep tissue air with surgical drainage catheter. Left lung base opacities are noted. IMPRESSION: Satisfactory alignment of the left shoulder arthroplasty.
--- NOTE | 2019-03-31 07:42 | Discharge Summary ---
Date of Service date of discharge: March 31, 2019 date of admission: 03/30/19 Admission HPI Per Admitting Provider Mr Garcias is a 78 year old male who complains of left shoulder pain, presents for pre-op eval prior to a left shoulder resurfacing vs total shoulder replacement at [facility]. He presents with pain and decreased range of motion in the left shoulder. He states that the symptoms have been chronic non-traumatic. Currently the patient states that the symptoms are moderate-severe. The pain is described as aching and stabbing. He rates his worst pain as 8/10. He rates his current pain as 5/10. The symptoms are aggravated by daily activities and lifting. the pain does sometimes wake him at night. Trey states that the symptoms are relieved by no specific activity. Patient is currently using Ibuprofen Patient had right shoulder resurfacing done by Dr. Love 2016. he has tried cortisone injections without relief Principal Diagnosis left shoulder osteoarthritis Discharge Exam Vital Signs Temp Pulse Pulse Pulse Resp BP Pulse Ox 03/31/19 07:09 36.7 C 52 L 14 138/75 95 03/31/19 03:46 36.5 C 46 L 16 139/69 96 03/30/19 23:09 36.5 C 46 L 16 115/63 95 03/30/19 19:49 36.5 C 50 L 17 102/56 L 94 03/30/19 16:16 36.9 C 53 L 17 105/63 94 03/30/19 15:32 36.4 C L 53 L 17 95/57 L 93 03/30/19 14:12 36.3 C L 54 L 16 105/66 95 03/30/19 13:37 36.4 C L 59 L 16 107/65 95 03/30/19 13:10 36.4 C L 66 15 100/63 96 03/30/19 12:50 64 16 101/59 L 96 03/30/19 12:40 36.4 C L 66 16 86/67 L 96 03/30/19 12:30 67 16 104/65 96 03/30/19 12:20 74 16 107/60 97 03/30/19 12:10 68 16 108/63 97 03/30/19 12:01 36.2 C L 71 16 115/66 97 03/30/19 08:21 36.4 C L 45 L 22 116/73 94 Intake and Output 03/30/19 03/31/19 03/31/19 22:59 06:59 14:59 Intake Total 1196.667 / 3915.000 718.333 / 3915.000 Output Total 275 / 935 650 / 935 Balance 921.667 / 2980.000 68.333 / 2980.000 Intake: IV 956.667 / 2175.000 718.333 / 2175.000 Nss 1000ML 1,000 ml @ 100 mls/ 956.667 / 1675.000 718.333 / 1675.000 hr IV .Q10H MARTHA Rx#:[id number] Oral 240 / 240 Output: Urine 250 / 900 650 / 900 Drain Output 25 / 25 Left Shoulder 25 / Constitutional WD/WN, vitals as above no acute distress Musculoskeletal left shoulder: incision clean and dry, NVDI, Rad +2, radial/med/ulnar nerves intact; CR <2 sec Discharge Data Allergies Allergy/AdvReac Type Severity Reaction Status Date / Time tetanus toxoid, adsorbed Allergy Intermediate HIVES Verified 03/30/19 08:07 Consultations 03/30/19 13:11 Consult Case Management - Discharge Planning Routine Procedures Performed Operation Date: 03/30/19 09:55 Actual Procedures p Left Shoulder Resurfacing Hemiarthroplasty(Left) - Sanya Love DO Ordered Studies 03/30/19 05:00 US - OR guided needle placemen Routine Hospital Course (1) History of left shoulder replacement: POD #1 s/p left shoulder resurfacing PT/OT no ER beyond neutral sling/ice plan for d/c home with OPPT Total Time Total Time Spent Total Time Spent (In Minutes): 15 Total Time Includes: Examination of the Patient, Discharge Planning and Medication Reconciliation Discharge Plan Discharge Items Patient Disposition: Home - Self-Care Reason For Visit: Primary Osteoarthritis, Left Shoulder Discharge Diagnosis: left shoulder resurfacing Condition: Good Discharge Goals: Decrease discomfort, Improve function and Increase independence Activity: Per 'Additional Instructions' section Lifting: Wait until after follow-up appointment Driving/Machine Use Comment: no driving until cleared by your surgeon Non-emergency contact: Surgeon Call non-emergency contact if: you have any medication questions, your temperature is above 101, your wound has increased redness, your wound has incre ased drainage and your wound pain has increased Follow-up/Referrals: Telma Cohen MD [Primary Care Provider] - Diet: Regular Addtl Provider Instructions: ACTIVITY RECOMMENDATIONS: SELF CARE INSTRUCTIONS AFTER SHOULDER RESURFACING A. You may do daily exercises as taught in physical therapy while in hospital. No lifting with the operative arm. Please schedule your outpatient physical therapy appointment to begin within 2-3 days after leaving the hospital. Specific restrictions will be written on your physical therapy prescription that is provided to you. B. You are to wear your sling/immobilizer at all times EXCEPT when performing your daily exercises, participating in physical therapy and for hygiene purposes. C. You may perform dry, daily dressing changes. Please keep your incision covered. You may shower 48 hours after surgery. Do not apply soap or any ointment/lotions directly over incision. Do not soak incision in bath tub/swimming pool. D. You may use ice as needed to operative shoulder. SPECIAL CARE INSTRUCTIONS: VERY IMPORTANT TO READ AND REVIEW A. There are a few signs you need to watch for after you are home. Call [facility] at [phone] if you experience any of the followin. Increased severe shoulder pain. Some pain is expected especially when you exercise. 2. Increased swelling in you shoulder or arm; pain or swelling in either upper extremity. 3. Any fluid drainage from the incision. 4. Shortness of breath or chest pain. B. Please call [facility] at [phone] if you have any questions or concerns about your operation or recovery. C. Call your physician if: 1. Temperature is greater than 101 degrees (F). 2. Pain is not relieved by prescribed pain medications. 3. Increase drainage or redness from incision. 4. Unanswered questions or concerns. FOLLOW UP VISIT: Please call [facility] at [phone] to schedule a follow up appointment with Dr. Love or his PA in 12-14 days from your surgery date. Prescriptions: New celecoxib [Celebrex] 200 mg Capsule 200 mg PO BID 30 Days Qty: 60 RF: 0 acetaminophen [Tylenol Extra Strength] 500 mg Tablet 1,000 mg PO Q8 14 Days Qty: 84 RF: 0 docusate sodium 100 mg Capsule 100 mg PO BID 10 Days Qty: 20 RF: 0 oxycodone 5 mg Tablet 5 - 10 mg PO Q4H PRN (Reason: pain) Qty: 30 RF: 0 cefadroxil 500 mg capsule 500 mg PO BID 10 Days Qty: 20 RF: 0 Continued Natural Fiber Laxative (sugar) powder 1 tsp PO QAM RF: 0 furosemide 20 mg tablet 20 mg PO QAM Qty: 30 RF: 1 multivitamin Tablet 1 tab PO QAM RF: 0 vitamin E 100 unit Capsule 200 unit PO QAM RF: 0 zinc sulfate 220 mg Tablet 220 mg PO QAM RF: 0 cranberry 400 mg Capsule 400 mg PO QAM RF: 0 magnesium 250 mg Tablet 250 mg PO QAM RF: 0 vitamin K2 40 mcg Tablet 40 mcg PO QAM RF: 0 tamsulosin [Flomax] 0.4 mg capsule 0.4 mg PO HS RF: 0 cholecalciferol (vitamin D3) [Vitamin D3] 5,000 unit tablet 10,000 units PO QAM RF: 0 doxycycline hyclate 100 mg Capsule 200 mg PO BID RF: 0 azithromycin 250 mg Tablet 250 mg PO BID RF: 0 ginkgo biloba 120 mg Tablet 120 mg PO BID RF: 0 [place] Oil-1000 1,000-200 mg Capsule 1 cap PO QAM RF: 0 cholecalciferol (vitamin D3) [Vitamin D3] 5,000 unit Tablet 5,000 unit PO QPM RF: 0 astaxanthin 4 mg capsule 4 mg PO QAM RF: 0 arginine (L-arginine) 500 mg Capsule 500 mg PO BID RF: 0 Probiotic-Digestive Enzymes 5-250 mg Capsule 1 cap PO QAM RF: 0 fluconazole 200 mg Tablet 200 mg PO BID RF: 0 hydroxychloroquine 200 mg tablet 200 mg PO BID RF: 0 Discontinued ibuprofen 200 mg Tablet 400 mg PO BID RF: 0 Stand-Alone Forms: [facility] Discharge Orders: Discharge Order (Routine); Ordered 03/31/19 Ordered By: Gustavo Spann Admission Data Admit Date/Time: 03/30/19 12:04 Attending Provider: Sanya Love Admit Provider: Sanya Love Primary Care Provider: Telma Cohen V. Service: Surgical Services Other Pending Studies at Discharge: No
[2019-03-31] MEDS: FLUCONAZOLE 100 MG TAB PO SCH (08:22)
[2019-03-31] MEDS: DOCUSATE SODIUM 100 MG CAP PO SCH (08:23)
[2019-03-31] MEDS: DOXYCYCLINE HYCLATE 100 MG CAP PO SCH (08:23)
[2019-03-31] MEDS: AZITHROMYCIN 250 MG TAB PO SCH (08:23)
--- NOTE | 2019-03-31 08:32 | Anesthesiology Progress Note ---
Date of Service March 31, 2019 Anesthesia Post Procedure Vital Signs Vital Signs: Temp Pulse Pulse Resp BP Pulse Ox 03/31/19 07:09 36.7 C 52 L 14 138/75 95 03/31/19 03:46 36.5 C 46 L 16 139/69 96 03/30/19 23:09 36.5 C 46 L 16 115/63 95 03/30/19 19:49 36.5 C 50 L 17 102/56 L 94 03/30/19 16:16 36.9 C 53 L 17 105/63 94 03/30/19 15:32 36.4 C L 53 L 17 95/57 L 93 03/30/19 14:12 36.3 C L 54 L 16 105/66 95 03/30/19 13:37 36.4 C L 59 L 16 107/65 95 03/30/19 13:10 36.4 C L 66 15 100/63 96 03/30/19 12:50 64 16 101/59 L 96 03/30/19 12:40 36.4 C L 66 16 86/67 L 96 03/30/19 12:30 67 16 104/65 96 03/30/19 12:20 74 16 107/60 97 03/30/19 12:10 68 16 108/63 97 03/30/19 12:01 36.2 C L 71 16 115/66 97 Pain Intensity Left Shoulder: Pain Intensity: 1 Notes Mental Status: alert / awake / arousable and participated in evaluation Patient Amnestic to Procedure: Yes Nausea / Vomiting: adequately controlled Pain: adequately controlled Airway Patency, RR, SpO2: stable & adequate BP & HR: stable & adequate Hydration State: stable & adequate Anesthetic Complications: no major complications apparent and Pt Satisfied with anesthetic care
[2019-03-31] MEDS ORDERED: CHOLECALCIFEROL 1,000 UNITS TAB PO SCH (09:00)
[2019-03-31] MEDS ORDERED: MAGNESIUM OXIDE 400 MG TAB PO SCH (09:00)
[2019-03-31] MEDS ORDERED: ZINC SULFATE 220 MG CAPSULE PO SCH (09:00)
[2019-03-31] MEDS ORDERED: TOCOPHERYL, DL-ALPHA 100 UNITS CAP PO SCH (09:00)
[2019-03-31] MEDS ORDERED: VITAMIN K2 40 MCG PO SCH (09:00)
[2019-03-31] MEDS ORDERED: MULTIVITAMIN TAB PO SCH (09:00)
[2019-03-31] MEDS ORDERED: CeleBREX 200 MG CAP PO SCH (21:00)
== END 2019-03-31 12:15 | disposition home or self-care (01) | DRG 483 ==
LOC: ASU 07:37 → 3E 12:04